=== PATIENT | female | born 1965 | race Caucasian/White ===

== ENCOUNTER 2017-08-11 14:45 | Emergency (ER) | payer OTHER, MEDICAID | END 2017-08-11 14:56 | disposition home or self-care (01) | LOC: E/R 14:45 | DX: R21 Rash and other nonspecific skin eruption (principal) | CPT/HCPCS: 99283; Z7502 ==

== ENCOUNTER 2017-09-07 13:38 | Day surgery (SDC) | payer OTHER ==
[2017-09-07] MEDS ORDERED: ROCURONIUM 50 MG INJ (14:19)
[2017-09-07] MEDS ORDERED: SUCCINYLCHOLINE CHLORIDE 100 MG/5 ML SYG IV (14:19)
[2017-09-07] MEDS ORDERED: PROPOFOL 20 ML ×2 (14:19→16:08)
[2017-09-07] MEDS ORDERED: FENTAnyl 50 MCG/ML VIAL (14:20)
[2017-09-07] MEDS ORDERED: ONDANSETRON 4 MG INJ ×2 (14:21→16:08)
[2017-09-07] MEDS ORDERED: METOCLOPRAMIDE 10 MG INJ ×2 (14:22→16:08)
[2017-09-07] MEDS ORDERED: CEFAZOLIN 1 GM INJ ×2 (14:22→16:38)
[2017-09-07] MEDS ORDERED: LACTATED RINGER'S 1,000 ML IV (14:30)
[2017-09-07 14:52] LABS: ADD MAN DIFF? NO
[2017-09-07 14:54] LABS: WHITE BLOOD COUNT 5.3 10^3/ul (4.8-10.8)
[2017-09-07 14:54] LABS: BASOPHILS % 0.2 % (0.0-2.0); EOSINOPHILS # 0.1 10^3/ul (0.0-0.5); EOSINOPHILS % 1.9 % (0.0-7.0); HEMATOCRIT 32.5 % (37.0-47.0); HEMOGLOBIN 10.9 g/dl (12.0-16.0); LYMPHOCYTES # 1.4 10^3/ul (0.8-2.9); LYMPHOCYTES % 25.7 % (15.0-51.0); MEAN CORPUSCULAR HEMOGLOBIN 30.1 pg (29.0-33.0); MEAN CORPUSCULAR HGB CONC 33.5 g/dl (32.0-37.0); MEAN CORPUSCULAR VOLUME 89.8 fl (82.0-101.0); MEAN PLATELET VOLUME 9.5 fl (7.4-10.4); MONOCYTE # 0.4 10^3/ul (0.3-0.9); MONOCYTES % 7.5 % (0.0-11.0); NEUTROPHIL # 3.4 10^3/ul (1.6-7.5); NEUTROPHILS % 64.5 % (39.0-77.0); PLATELET COUNT 343 10^3/UL (140-415); RED BLOOD COUNT 3.62 10^6/ul (4.20-5.40); RED CELL DISTRIBUTION WIDTH 12.6 % (11.5-14.5)
[2017-09-07 14:58] LABS: ADD UMIC NO; UR ASCORBIC ACID 20 mg/dL (NEGATIVE); UR BILIRUBIN (Dip) NEGATIVE (NEGATIVE); UR BLOOD (Dip) NEGATIVE (NEGATIVE); UR CLARITY CLEAR (CLEAR); UR COLOR YELLOW (YELLOW); UR GLUCOSE (Dip) NEGATIVE (NEGATIVE); UR KETONES (Dip) TRACE mg/dL (NEGATIVE); UR LEUKOCYTE ESTERASE (Dip) NEGATIVE Leu/ul (NEGATIVE); UR NITRITE (Dip) NEGATIVE (NEGATIVE); UR SPECIFIC GRAVITY (Dip) 1.016 (1.003-1.030); UR TOTAL PROTEIN (Dip) NEGATIVE (NEGATIVE); UR UROBILINOGEN (Dip) NEGATIVE (NEGATIVE)
[2017-09-07 15:24] LABS: PROTIME 13.3 Sec (11.9-14.9)
[2017-09-07 15:25] LABS: PARTIAL THROMBOPLASTIN TIME 26.4 Sec (25.0-35.0)
[2017-09-07] MEDS ORDERED: MIDAZOLAM 1 MG/ML 2 ML INJ (16:08)
[2017-09-07] MEDS ORDERED: KETOROLAC 30 MG INJ (16:08)
[2017-09-07] MEDS ORDERED: EPHEDrine SULFATE 50 MG/5 ML SYG (16:53)
[2017-09-07] MEDS: KETOROLAC 30 MG INJ IM (18:31)
[2017-09-07] MEDS: DOXYCYCLINE 100 MG TAB PO (18:53)
== END 2017-09-07 19:07 | disposition home or self-care (01) ==
LOC: SDS 13:38
DX: N93.9 Abnormal uterine and vaginal bleeding, unspecified (principal); N95.0 Postmenopausal bleeding; I10 Essential (primary) hypertension; E11.9 Type 2 diabetes mellitus without complications; E78.5 Hyperlipidemia, unspecified
CPT/HCPCS: 58558; 81003; 82962; 84703; 85025; 85610; 85730; 88104; 88305

== ENCOUNTER 2017-11-17 17:04 | Emergency (ER) | payer OTHER ==
[2017-11-17] MEDS: LIDOCAINE 2% (MDV) 20 ML INJ INJ (19:16)
[2017-11-17 19:44] LABS: ADD MAN DIFF? NO
[2017-11-17 19:48] LABS: WHITE BLOOD COUNT 6.1 10^3/ul (4.8-10.8)
[2017-11-17 19:48] LABS: BASOPHILS % 0.5 % (0.0-2.0); EOSINOPHILS # 0.1 10^3/ul (0.0-0.5); EOSINOPHILS % 1.8 % (0.0-7.0); HEMATOCRIT 35.8 % (37.0-47.0); HEMOGLOBIN 11.7 g/dl (12.0-16.0); LYMPHOCYTES # 1.4 10^3/ul (0.8-2.9); LYMPHOCYTES % 23.7 % (15.0-51.0); MEAN CORPUSCULAR HGB CONC 32.7 g/dl (32.0-37.0); MEAN CORPUSCULAR VOLUME 82.7 fl (82.0-101.0); MEAN PLATELET VOLUME 10.1 fl (7.4-10.4); MONOCYTE # 0.4 10^3/ul (0.3-0.9); MONOCYTES % 6.4 % (0.0-11.0); NEUTROPHIL # 4.1 10^3/ul (1.6-7.5); NEUTROPHILS % 67.4 % (39.0-77.0); PLATELET COUNT 266 10^3/UL (140-415); RED BLOOD COUNT 4.33 10^6/ul (4.20-5.40); RED CELL DISTRIBUTION WIDTH 13.9 % (11.5-14.5)
[2017-11-17 20:15] LABS: ALANINE AMINOTRANSFERASE 33 IU/L (13-69); ALBUMIN 4.1 g/dl (3.3-4.9); ALBUMIN/GLOBULIN RATIO 1.17; ALKALINE PHOSPHATASE 60 IU/L (42-121); ANION GAP 15 (8-16); ASPARTATE AMINO TRANSFERASE 24 IU/L (15-46); BILIRUBIN,INDIRECT 0.1 mg/dl (0-1.1); BILIRUBIN,TOTAL 0.1 mg/dl (0.2-1.3); BLOOD UREA NITROGEN 12 mg/dl (7-20); CALCIUM 9.5 mg/dl (8.4-10.2); CARBON DIOXIDE 27 mmol/L (21-31); CHLORIDE 100 mmol/L (97-110); CREATININE 0.66 mg/dl (0.44-1.00); GLUCOSE 291 mg/dl (70-220); POTASSIUM 4.2 mmol/L (3.5-5.1); SODIUM 138 mmol/L (135-144); TOTAL PROTEIN 7.6 g/dl (6.1-8.1)
[2017-11-17] MEDS: SOD CHLORIDE 0.9% 100 ML (20:16)
[2017-11-17] MEDS: IOHEXOL 300MG/ML 150 ML BTL (20:16)
[2017-11-17 21:52] LABS: ADD UMIC NO; UR ASCORBIC ACID NEGATIVE (NEGATIVE); UR BILIRUBIN (Dip) NEGATIVE (NEGATIVE); UR BLOOD (Dip) NEGATIVE (NEGATIVE); UR CLARITY CLEAR (CLEAR); UR COLOR STRAW (YELLOW); UR GLUCOSE (Dip) 3+ mg/dL (NEGATIVE); UR KETONES (Dip) NEGATIVE (NEGATIVE); UR LEUKOCYTE ESTERASE (Dip) NEGATIVE Leu/ul (NEGATIVE); UR NITRITE (Dip) NEGATIVE (NEGATIVE); UR TOTAL PROTEIN (Dip) NEGATIVE (NEGATIVE); UR UROBILINOGEN (Dip) NEGATIVE (NEGATIVE)
[2017-11-17] MEDS: CEFTRIAXONE 1 GM/50 ML (PMX) 50 ML IVPB (23:03)
== END 2017-11-17 23:29 | disposition home or self-care (01) ==
LOC: FTE 17:04
DX: L02.215 Cutaneous abscess of perineum (principal); I10 Essential (primary) hypertension; E11.9 Type 2 diabetes mellitus without complications; Z79.82 Long term (current) use of aspirin; Z79.84 Long term (current) use of oral hypoglycemic drugs
CPT/HCPCS: 74177; 80053; 81003; 81025; 85025; 96374; 99285-25

== ENCOUNTER 2017-12-14 16:19 | Emergency (ER) | payer OTHER | END 2017-12-14 19:20 | disposition home or self-care (01) | LOC: FTE 16:19 | DX: J06.9 Acute upper respiratory infection, unspecified (principal); I10 Essential (primary) hypertension; E11.9 Type 2 diabetes mellitus without complications; Z79.84 Long term (current) use of oral hypoglycemic drugs; Z79.82 Long term (current) use of aspirin | CPT/HCPCS: 99283; Z7502 ==

== ENCOUNTER 2018-01-03 08:20 | Emergency (ER) | payer OTHER ==
[2018-01-03 08:45] LABS: URINE BLOOD (Dip) POC Negative (NEGATIVE); URINE GLUCOSE (Dip) POC Negative (NEGATIVE); URINE KETONES (Dip) POC Negative (NEGATIVE); URINE LEUKOCYTE EST (Dip) POC 1+ (NEGATIVE); URINE NITRITE (Dip) POC Positive (NEGATIVE); URINE TOTAL PROTEIN POC Negative (NEGATIVE)
== END 2018-01-03 09:21 | disposition home or self-care (01) ==
LOC: FTE 08:20
DX: B37.9 Candidiasis, unspecified (principal); N39.0 Urinary tract infection, site not specified; T36.95XA Adverse effect of unspecified systemic antibiotic, initial encounter; I10 Essential (primary) hypertension; E11.9 Type 2 diabetes mellitus without complications; Z79.82 Long term (current) use of aspirin; Z79.84 Long term (current) use of oral hypoglycemic drugs
CPT/HCPCS: 81003; 81025; 99283

== ENCOUNTER 2018-01-15 19:18 | Emergency (ER) | payer OTHER ==
[2018-01-15] MEDS ORDERED: LIDOCAINE 1% (MDV) 20 ML INJ SC (21:00)
[2018-01-15] MEDS: LIDOCAINE 1% (MDV) 50 ML INJ SC (21:14)
== END 2018-01-15 21:46 | disposition home or self-care (01) ==
LOC: FTE 19:18
DX: N94.89 Other specified conditions associated with female genital organs and menstrual cycle (principal); I10 Essential (primary) hypertension; E11.9 Type 2 diabetes mellitus without complications; Z79.82 Long term (current) use of aspirin; Z79.84 Long term (current) use of oral hypoglycemic drugs
CPT/HCPCS: 99283; Z7502

== ENCOUNTER 2018-06-07 07:39 | Day surgery (SDC) | payer OTHER ==
[2018-06-07] MEDS ORDERED: LIDOCAINE 4% SOLUTION 50 ML BTL (08:44)
[2018-06-07] MEDS ORDERED: MIDAZOLAM 1 MG/ML 2 ML INJ ×2 (10:58)
[2018-06-07] MEDS ORDERED: FENTAnyl 50 MCG/ML VIAL (10:58)
[2018-06-07] MEDS ORDERED: NALOXONE (0.4 MG/ML) INJ (10:59)
== END 2018-06-07 15:12 | disposition home or self-care (01) ==
LOC: GIL 07:39
DX: Z12.11 Encounter for screening for malignant neoplasm of colon (principal); K29.50 Unspecified chronic gastritis without bleeding; K64.4 Residual hemorrhoidal skin tags; K31.811 Angiodysplasia of stomach and duodenum with bleeding; K20.8 Other esophagitis; E11.9 Type 2 diabetes mellitus without complications
CPT/HCPCS: 43239; 82962; 84703; 88305; 88312

== ENCOUNTER 2018-08-18 07:46 | Emergency (ER) | payer OTHER ==
[2018-08-18 08:27] LABS: URINE BLOOD (Dip) POC Negative (NEGATIVE); URINE KETONES (Dip) POC Negative (NEGATIVE); URINE LEUKOCYTE EST (Dip) POC Negative (NEGATIVE); URINE NITRITE (Dip) POC Negative (NEGATIVE); URINE TOTAL PROTEIN POC Negative (NEGATIVE)
[2018-08-18] MEDS: KETOROLAC 15 MG INJ IM (08:33)
== END 2018-08-18 09:26 | disposition home or self-care (01) ==
LOC: FTE 07:46
DX: G44.209 Tension-type headache, unspecified, not intractable (principal); R39.15 Urgency of urination; M62.838 Other muscle spasm; E11.9 Type 2 diabetes mellitus without complications; I10 Essential (primary) hypertension; Z79.84 Long term (current) use of oral hypoglycemic drugs
CPT/HCPCS: 81003; 81025; 96372; 99284-25

== ENCOUNTER 2018-08-22 18:11 | Inpatient (IN) | payer OTHER ==
[2018-08-22 19:29] LABS: ADD MAN DIFF? NO
[2018-08-22 19:31] LABS: BASOPHILS % 0.4 % (0.0-2.0); EOSINOPHILS # 0.2 10^3/ul (0.0-0.5); EOSINOPHILS % 3.2 % (0.0-7.0); HEMATOCRIT 39.7 % (37.0-47.0); HEMOGLOBIN 13.3 g/dl (12.0-16.0); LYMPHOCYTES # 1.5 10^3/ul (0.8-2.9); LYMPHOCYTES % 30.9 % (15.0-51.0); MEAN CORPUSCULAR HEMOGLOBIN 29.7 pg (29.0-33.0); MEAN CORPUSCULAR HGB CONC 33.5 g/dl (32.0-37.0); MEAN CORPUSCULAR VOLUME 88.6 fl (82.0-101.0); MEAN PLATELET VOLUME 9.7 fl (7.4-10.4); MONOCYTE # 0.4 10^3/ul (0.3-0.9); MONOCYTES % 8.8 % (0.0-11.0); NEUTROPHIL # 2.8 10^3/ul (1.6-7.5); NEUTROPHILS % 56.3 % (39.0-77.0); PLATELET COUNT 233 10^3/UL (140-415); RED BLOOD COUNT 4.48 10^6/ul (4.20-5.40); RED CELL DISTRIBUTION WIDTH 11.9 % (11.5-14.5)
[2018-08-22 19:41] LABS: ADD UMIC NO; UR ASCORBIC ACID NEGATIVE (NEGATIVE); UR BILIRUBIN (Dip) NEGATIVE (NEGATIVE); UR BLOOD (Dip) NEGATIVE (NEGATIVE); UR CLARITY CLEAR (CLEAR); UR COLOR YELLOW (YELLOW); UR GLUCOSE (Dip) 3+ mg/dL (NEGATIVE); UR KETONES (Dip) TRACE mg/dL (NEGATIVE); UR LEUKOCYTE ESTERASE (Dip) NEGATIVE Leu/ul (NEGATIVE); UR NITRITE (Dip) NEGATIVE (NEGATIVE); UR SPECIFIC GRAVITY (Dip) 1.022 (1.003-1.030); UR TOTAL PROTEIN (Dip) NEGATIVE (NEGATIVE); UR UROBILINOGEN (Dip) NEGATIVE (NEGATIVE)
[2018-08-22 19:49] LABS: HEMOGLOBIN A1C 9.7 % (0-5.9)
[2018-08-22 19:49] LABS: INR 0.91; PROTIME 12.4 Sec (11.9-14.9)
[2018-08-22 19:50] LABS: ANION GAP 9 (5-13); BLOOD UREA NITROGEN 22 mg/dl (7-20); CALCIUM 9.5 mg/dl (8.4-10.2); CARBON DIOXIDE 28 mmol/L (21-31); CHLORIDE 103 mmol/L (97-110); CHOL/HDL RATIO 3.7 RATIO; CHOLESTEROL 152 mg/dl (100-200); Estimated GFR > 60 mL/min (>60); GLUCOSE 198 mg/dl (70-220); HDL CHOLESTEROL 41 mg/dl (37-92); LDL CHOLESTEROL,CALCULATED 83 mg/dl; PARTIAL THROMBOPLASTIN TIME 25.8 Sec (23.0-35.0); SODIUM 140 mmol/L (135-144); TRIGLYCERIDES 142 mg/dl (0-149)
[2018-08-22 20:01] LABS: TROPONIN-I < 0.012 ng/ml (0.000-0.120)
[2018-08-22 20:14] LABS: AMPHETAMINE/METHAMPHETAMINE Negative (NEGATIVE); BARBITURATES Negative (NEGATIVE); BENZODIAZEPINES Negative (NEGATIVE); CANNABINOIDS Negative (NEGATIVE); COCAINE Negative (NEGATIVE); OPIATES Negative (NEGATIVE)
[2018-08-22] MEDS: ASPIRIN 325 MG TAB PO (21:11)
[2018-08-22] MEDS ORDERED: NACL 0.9% 3 ML SYG IV (21:30)
[2018-08-22] MEDS ORDERED: ACETAMINOPHEN 325 MG TAB PO ×2 (21:30)
[2018-08-22] MEDS ORDERED: hydrALAzine 20 MG INJ IV (21:30)
[2018-08-22] MEDS ORDERED: ONDANSETRON 4 MG INJ IV ×2 (21:30)
[2018-08-22] MEDS ORDERED: BISACODYL (EC) 5 MG TAB PO (21:30)
[2018-08-23] MEDS: ASA/ACETAMINOPHEN/CAFF TAB PO (03:59)
[2018-08-23] MEDS ORDERED: KETOROLAC 15 MG INJ IM (04:55)
[2018-08-23] MEDS: KETOROLAC 15 MG INJ IV ×2 (05:01→06:05)
[2018-08-23] MEDS ORDERED: KETOROLAC 15 MG INJ IV (06:03)
[2018-08-23 06:23] LABS: ADD MAN DIFF? NO
[2018-08-23 06:28] LABS: BASOPHILS % 0.7 % (0.0-2.0); EOSINOPHILS # 0.2 10^3/ul (0.0-0.5); EOSINOPHILS % 4.5 % (0.0-7.0); HEMATOCRIT 39.1 % (37.0-47.0); LYMPHOCYTES # 1.4 10^3/ul (0.8-2.9); LYMPHOCYTES % 31.3 % (15.0-51.0); MEAN CORPUSCULAR HEMOGLOBIN 29.3 pg (29.0-33.0); MEAN CORPUSCULAR HGB CONC 33.2 g/dl (32.0-37.0); MEAN CORPUSCULAR VOLUME 88.3 fl (82.0-101.0); MEAN PLATELET VOLUME 10.3 fl (7.4-10.4); MONOCYTE # 0.4 10^3/ul (0.3-0.9); MONOCYTES % 8.8 % (0.0-11.0); NEUTROPHIL # 2.4 10^3/ul (1.6-7.5); NEUTROPHILS % 54.5 % (39.0-77.0); PLATELET COUNT 216 10^3/UL (140-415); RED BLOOD COUNT 4.43 10^6/ul (4.20-5.40); RED CELL DISTRIBUTION WIDTH 12.1 % (11.5-14.5)
[2018-08-23 06:28] LABS: WHITE BLOOD COUNT 4.4 10^3/ul (4.8-10.8)
[2018-08-23 07:06] LABS: ALANINE AMINOTRANSFERASE 22 IU/L (13-69); ALBUMIN 3.8 g/dl (3.3-4.9); ALBUMIN/GLOBULIN RATIO 1.52; ALKALINE PHOSPHATASE 51 IU/L (42-121); ANION GAP 6 (5-13); ASPARTATE AMINO TRANSFERASE 18 IU/L (15-46); BILIRUBIN,INDIRECT 0.4 mg/dl (0-1.1); BILIRUBIN,TOTAL 0.4 mg/dl (0.2-1.3); BLOOD UREA NITROGEN 18 mg/dl (7-20); CALCIUM 9.2 mg/dl (8.4-10.2); CARBON DIOXIDE 29 mmol/L (21-31); CHLORIDE 106 mmol/L (97-110); CHOL/HDL RATIO 4.3 RATIO; CHOLESTEROL 145 mg/dl (100-200); CREATININE 0.79 mg/dl (0.44-1.00); Estimated GFR > 60 mL/min (>60); GLUCOSE 312 mg/dl (70-220); HDL CHOLESTEROL 33 mg/dl (37-92); LDL CHOLESTEROL,CALCULATED 79 mg/dl; MAGNESIUM 1.6 mg/dl (1.7-2.5); POTASSIUM 4.6 mmol/L (3.5-5.1); SODIUM 141 mmol/L (135-144); TOTAL PROTEIN 6.3 g/dl (6.1-8.1); TRIGLYCERIDES 166 mg/dl (0-149)
[2018-08-23 07:10] LABS: HEMOGLOBIN A1C 9.8 % (0-5.9)
[2018-08-23] MEDS: ASPIRIN 81 MG TAB PO (08:17)
[2018-08-23] MEDS ORDERED: GLUCOSE GEL 15 GRAM TUBE BUCCAL (09:30)
[2018-08-23] MEDS ORDERED: GLUCOSE GEL 15 GRAM TUBE PO ×2 (09:30)
[2018-08-23] MEDS ORDERED: GLUCAGON 1 MG INJ IM (09:30)
[2018-08-23] MEDS ORDERED: DEXTROSE 50% 50 ML SYRINGE IV ×2 (09:30)
[2018-08-23] MEDS: INSULIN ASPART [NOVOLOG] 3 ML PEN SC ×5 (12:02→22:15)
[2018-08-23] MEDS: NAPROXEN 500 MG TAB PO ×2 (13:43→21:30)
[2018-08-23 16:56] LABS: RAPID PLASMA REAGIN NONREACTIVE (NR)
[2018-08-23] MEDS ORDERED: SIMVASTATIN 20 MG PO (21:00)
[2018-08-23] MEDS: ATORVASTATIN 10 MG TAB PO (21:30)
[2018-08-23] MEDS: INSULIN GLARGINE [LANTus] (100 UNITS/ML) SYG SC (22:09)
[2018-08-24] MEDS: ACCU-CHEK XX (02:00)
[2018-08-24] MEDS: PANTOPRAZOLE (EC) 40 MG TAB PO (06:10)
[2018-08-24] MEDS: ASPIRIN 81 MG TAB PO (08:38)
[2018-08-24] MEDS: NAPROXEN 500 MG TAB PO (08:38)
[2018-08-24] MEDS: INSULIN ASPART [NOVOLOG] 3 ML PEN SC ×6 (08:42→17:15)
[2018-08-24] MEDS: DOCUSATE SODIUM 100 MG CAP PO (08:44)
[2018-08-24] MEDS: ACET/BUTAL/CAFF TAB PO (13:11)
[2018-08-24 15:13] LABS: ADD MAN DIFF? NO
[2018-08-24 15:16] LABS: BASOPHILS % 0.4 % (0.0-2.0); EOSINOPHILS # 0.2 10^3/ul (0.0-0.5); HEMATOCRIT 41.4 % (37.0-47.0); HEMOGLOBIN 13.7 g/dl (12.0-16.0); LYMPHOCYTES # 1.3 10^3/ul (0.8-2.9); LYMPHOCYTES % 26.3 % (15.0-51.0); MEAN CORPUSCULAR HEMOGLOBIN 29.2 pg (29.0-33.0); MEAN CORPUSCULAR HGB CONC 33.1 g/dl (32.0-37.0); MEAN CORPUSCULAR VOLUME 88.3 fl (82.0-101.0); MEAN PLATELET VOLUME 10.1 fl (7.4-10.4); MONOCYTE # 0.4 10^3/ul (0.3-0.9); NEUTROPHIL # 3.2 10^3/ul (1.6-7.5); NEUTROPHILS % 63.1 % (39.0-77.0); PLATELET COUNT 230 10^3/UL (140-415); RED BLOOD COUNT 4.69 10^6/ul (4.20-5.40); RED CELL DISTRIBUTION WIDTH 11.9 % (11.5-14.5)
[2018-08-24 15:31] LABS: MAGNESIUM 1.9 mg/dl (1.7-2.5)
[2018-08-24] MEDS ORDERED: INSULIN GLARGINE [LANTus] (100 UNITS/ML) SYG SC (20:00)
[2018-08-24] MEDS ORDERED: TOPIRAMATE 25 MG TAB PO (21:00)
== END 2018-08-24 17:49 | disposition home or self-care (01) | DRG 103 ==
LOC: TEL 21:04 → E/R 18:11
DX: G43.809 Other migraine, not intractable, without status migrainosus (principal); Q21.1 Atrial septal defect; I10 Essential (primary) hypertension; E11.9 Type 2 diabetes mellitus without complications; E78.00 Pure hypercholesterolemia, unspecified; Z79.84 Long term (current) use of oral hypoglycemic drugs
CPT/HCPCS: 36415; 70450; 70544; 70549; 70551; 71045; 72141; 80048; 80053; 80061; 80307; 81003; 82962; 83036; 83735; 84443; 84484; 85025; 85610; 85651; 85730; 86592; 92610; 93005; 93306; 97161; 97167; 99285-25

== ENCOUNTER 2018-09-08 18:13 | Emergency (ER) | payer OTHER ==
[2018-09-08 19:57] LABS: ADD UMIC YES; UR ASCORBIC ACID NEGATIVE (NEGATIVE); UR BACTERIA FEW /HPF (NONE SEEN); UR BILIRUBIN (Dip) NEGATIVE (NEGATIVE); UR BLOOD (Dip) 1+ mg/dL (NEGATIVE); UR CLARITY CLEAR (CLEAR); UR COLOR YELLOW (YELLOW); UR GLUCOSE (Dip) NEGATIVE (NEGATIVE); UR KETONES (Dip) NEGATIVE (NEGATIVE); UR LEUKOCYTE ESTERASE (Dip) NEGATIVE Leu/ul (NEGATIVE); UR NITRITE (Dip) NEGATIVE (NEGATIVE); UR RBC 7 /HPF (0-5); UR SQUAMOUS EPITHELIAL CELL FEW /HPF (FEW); UR TOTAL PROTEIN (Dip) NEGATIVE (NEGATIVE); UR UROBILINOGEN (Dip) NEGATIVE (NEGATIVE); UR WBC 4 /HPF (0-5)
== END 2018-09-08 20:14 | disposition home or self-care (01) ==
LOC: FTE 18:13
DX: R30.0 Dysuria (principal); E11.9 Type 2 diabetes mellitus without complications; I10 Essential (primary) hypertension; Z79.82 Long term (current) use of aspirin; Z79.84 Long term (current) use of oral hypoglycemic drugs
CPT/HCPCS: 81001; 99283

== ENCOUNTER 2018-09-16 22:25 | Emergency (ER) | payer OTHER ==
[2018-09-16 23:00] LABS: URINE PH (Dip) POC 7.5 (5.0-8.5)
[2018-09-16 23:00] LABS: URINE BLOOD (Dip) POC Negative (NEGATIVE); URINE KETONES (Dip) POC Negative (NEGATIVE); URINE LEUKOCYTE EST (Dip) POC Negative (NEGATIVE); URINE NITRITE (Dip) POC Negative (NEGATIVE); URINE TOTAL PROTEIN POC Negative (NEGATIVE)
[2018-09-16] MEDS: PHENAZOPYRIDINE 100 MG TAB PO (23:26)
[2018-09-16 23:45] LABS: ADD UMIC NO; UR ASCORBIC ACID NEGATIVE (NEGATIVE); UR BILIRUBIN (Dip) NEGATIVE (NEGATIVE); UR BLOOD (Dip) NEGATIVE (NEGATIVE); UR CLARITY SLIGHTLY CLOUDY (CLEAR); UR COLOR YELLOW (YELLOW); UR GLUCOSE (Dip) 3+ mg/dL (NEGATIVE); UR KETONES (Dip) NEGATIVE (NEGATIVE); UR LEUKOCYTE ESTERASE (Dip) NEGATIVE Leu/ul (NEGATIVE); UR NITRITE (Dip) NEGATIVE (NEGATIVE); UR RBC 1 /HPF (0-5); UR SPECIFIC GRAVITY (Dip) 1.026 (1.003-1.030); UR SQUAMOUS EPITHELIAL CELL FEW /HPF (FEW); UR TOTAL PROTEIN (Dip) NEGATIVE (NEGATIVE); UR UROBILINOGEN (Dip) NEGATIVE (NEGATIVE); UR WBC 1 /HPF (0-5)
== END 2018-09-17 00:47 | disposition home or self-care (01) ==
LOC: FTE 09-17 00:47
DX: N30.90 Cystitis, unspecified without hematuria (principal); E11.9 Type 2 diabetes mellitus without complications; I10 Essential (primary) hypertension; Z79.82 Long term (current) use of aspirin; Z79.84 Long term (current) use of oral hypoglycemic drugs; Z86.73 Personal history of transient ischemic attack (TIA), and cerebral infarction without residual deficits
CPT/HCPCS: 81001; 81003; 99283